=== PATIENT | male | born 1995 | race Caucasian/White ===

== ENCOUNTER 2017-06-07 21:23 | Emergency (ER) | payer MEDICAID, SELFPAY ==
[2017-06-07 21:24] VITALS: BP 139/63; PULSE 95; RESP 15; TEMP 36.9; BMI 34.2
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
== END 2017-06-07 22:22 | disposition home or self-care (01) ==
PROVIDERS: Emergency Provider Emergency Medicine; Family Provider Pediatrics; PCP Pediatrics
DX: S61.216A Laceration without foreign body of right little finger without damage to nail, initial encounter (principal); W26.0XXA Contact with knife, initial encounter; Y93.89 Activity, other specified; Y92.9 Unspecified place or not applicable; Y99.8 Other external cause status
CPT/HCPCS: 12001; 99282

== ENCOUNTER 2017-11-30 17:03 | Emergency (ER) | payer MEDICAID, SELFPAY ==
[2017-11-30 17:04] VITALS: BP 131/67; PULSE 83; RESP 15; TEMP 36.8; O2SAT 97; BMI 35.6
[2017-11-30] MEDS: Naproxen 500 MG Tablet PO (17:24)
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
[2017-11-30 17:51] VITALS: RESP 14
--- NOTE | 2017-11-30 17:51 | ED.RN ---
REVIEWED D/C INSTRUCTIONS, FOLLOW UP CARE, PRESCRIPTION, AND S/S THAT WOULD WARRANT A RETURN TO THE ED WITH PT. PT VERBALIZED AN UNDERSTANDING AND DENIES FURTHER QUESTIONS FOR THIS RN. PT SKIN P/W/D, RESP EVEN AND UNLABORED, PT A&O X 3, NO DISTRESS NOTED. PT AMBULATED OUT OF ED, GAIT STEADY.
== END 2017-11-30 17:52 | disposition home or self-care (01) ==
LOC: ED 17:40
PROVIDERS: Emergency Provider Emergency Medicine; Family Provider Pediatrics; PCP Pediatrics
DX: M79.641 Pain in right hand (principal); F17.210 Nicotine dependence, cigarettes, uncomplicated
CPT/HCPCS: 73130; 99283; A4216

== ENCOUNTER 2018-05-26 19:30 | Emergency (ER) | payer MEDICAID, SELFPAY ==
[2018-05-26 19:30] VITALS: BP 155/98; PULSE 88; RESP 16; TEMP 36.6; O2SAT 98; BMI 33.7
[2018-05-26] MEDS: predniSONE 20 MG Tablet 60 MG PO (19:57)
[2018-05-26] MEDS: Naproxen 500 MG Tablet PO (19:57)
[2018-05-26] MEDS: oxyCODONE 5 MG Tablet PO (19:57)
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
[2018-05-26 21:42] VITALS: RESP 18; O2SAT 98
== END 2018-05-26 21:42 | disposition home or self-care (01) ==
PROVIDERS: Emergency Provider Emergency Medicine
DX: S39.012A Strain of muscle, fascia and tendon of lower back, initial encounter (principal); X50.0XXA Overexertion from strenuous movement or load, initial encounter; Y93.9 Activity, unspecified; Y92.9 Unspecified place or not applicable; Y99.9 Unspecified external cause status; R25.2 Cramp and spasm; M54.10 Radiculopathy, site unspecified; Z72.0 Tobacco use
CPT/HCPCS: 99283

== ENCOUNTER 2018-09-26 09:23 | Emergency (ER) | payer MEDICAID, SELFPAY ==
[2018-09-26 09:24] VITALS: BP 124/78; PULSE 94; RESP 18; TEMP 36.6; O2SAT 98; BMI 34.0
--- NOTE | 2018-09-26 09:49 | ED.VISSUMM ---
- ER Visit Summary Date of Service: 09/26/18 Chief Complaint: Back pain History of Present Illness: The patient is a 22 M with right lower back pain. The symptoms started yesterday evening. The patient was working on his car. He was pulling on a wrench. No other injuries, falls, or car accidents. He has had this pain before, but never this bad. He said the pain radiates down to his right leg. Associated with some paresthesias to his right thigh. Denies any saddle anesthesias. Denies any incontinence or bowel or bladder issues. Denies abdominal pain or GI symptoms. Denies any urinary symptoms. Denies fever or systemic symptoms. Denies any history of back surgery. Physical Examination: Afebrile and vital signs unremarkable. Patient appears uncomfortable but not toxic or in distress. Right lumbar paraspinal muscle tender to palpation. Spine is nontender. No CVA tenderness. Straight leg raise is negative. Good strength, symmetric. Patient reports subjective paresthesias to his left upper leg. He does have some sensation. Pulses intact. Skin appears normal. Test Results: None indicated Emergency Department Course and Treatment: Patient has right lumbar back pain with right-sided sciatica. He was treated medically with Toradol and Norflex. There is no indication for imaging or other diagnostic testing. Patient was advised that he has new or worsening symptoms, he may need imaging or further testing. He will return if there is any issues. Otherwise he will be prescribed naproxen and Flexeril. Follow-up with primary care. Treatment Plan: As above Disposition: Discharge Impression: 1. Right lumbar back pain with right sciatica This note was generated with [employer] dictation software. It may contain incorrect words, spelling, and punctuation that were not noted in review of the chart prior to signing ED Disposition - Plan for ED Patient: Referrals: Care Physician,No Primary [Primary Care Provider] -
--- NOTE | 2018-09-26 09:52 | ED.DEP ---
ED Disposition - Plan for ED Patient: Instructions: BACK PAIN w/ SCIATICA Prescriptions: cycloBENZAPRine HCl [Flexeril] 10 mg PO TID PRN #20 tab PRN Reason: Muscle Spasm Prescription Printed Naproxen [Naprosyn] 500 mg PO BID #14 tab Prescription Printed Referrals: Juana Victor [NON-STAFF] -
[2018-09-26] MEDS: Ketorolac 60 MG/2 ML Vial IM (09:53)
[2018-09-26] MEDS: Orphenadrine 60 MG/2 ML Ampul IM (09:54)
[2018-09-26 10:18] VITALS: BP 121/75; PULSE 82; RESP 18
== END 2018-09-26 10:19 | disposition home or self-care (01) ==
LOC: ED 10:04
PROVIDERS: Emergency Provider Emergency Medicine
DX: M54.41 Lumbago with sciatica, right side (principal); Z72.0 Tobacco use
CPT/HCPCS: 96372; 99284

== ENCOUNTER → 2018-11-12 11:53 | Outpatient (CLI) | payer OTHER, SELFPAY ==
--- NOTE | 2018-11-12 11:55 | RAD_ITS ---
STUDY: X-RAY - RIGHT HAND REASON FOR EXAM: Pain and swelling in metacarpal area, smashing injury at work today. TECHNIQUE: 3 view(s) of the hand. COMPARISON: Radiographs 11/30/2017. FINDINGS: Normal radiocarpal articulation. Normal distal radioulnar joint. Normal visualized carpal bones. Normal carpal articulations Normal carpometacarpal articulation of the thumb. Normal second through fifth carpometacarpal joints. Normal metacarpi. Normal metacarpophalangeal joint of the thumb. Normal interphalangeal joint of the thumb. Normal proximal and distal phalanges of the thumb. Normal metacarpophalangeal joints of the second through fifth fingers. Normal proximal and distal interphalangeal joints of the second through fifth fingers. Normal phalanges of the second through fifth fingers. The soft tissue structures are unremarkable. RAD/Hand Min 3 Views IMPRESSION: Normal x-ray examination of the right hand. Electronically Signed: Randall Lovett MD at 12:38 EDT Tel , Service support ,
== END ==
PROVIDERS: Referring Provider Physician Assistant; Visit Provider Physician Assistant
DX: S69.91XA Unspecified injury of right wrist, hand and finger(s), initial encounter (principal)
CPT/HCPCS: 73130

== ENCOUNTER → 2019-06-07 | Outpatient (CLI) | payer BC, MEDICAID, SELFPAY ==
[2019-06-07 13:53] VITALS: BMI 34.0
[2019-06-07 15:30] LABS: Absolute Lymphocyte Count 2.82 X10^3/uL (0.83-4.51); Absolute Neutrophil Count 3.9 X10^3/uL (2.0-7.7); Basophil# 0.03 X10^3/uL; Basophil% 0.4 % (0-1); Hematocrit 46.1 % (40-54); Hemoglobin 15.3 g/dL (13.0-16.5); Lymphocyte # 2.82 X10^3/ul (4.0); Lymphocyte % 37.4 % (19-41); Mean Corp Hgb Conc 33.2 g/dL (32-36); Mean Corpuscular Hgb 28.3 pg (27.0-32.0); Mean Corpuscular Volume 85.2 fL (80-94); Mean Platelet Vol. 11.7 fl (6.2-12.0); Monocyte# 0.46 X10^3/uL; Monocyte% 6.1 % (0-10); NRBC Flagged by Analyzer 0 % (0-5); Neutrophil # 3.93 X10^3/uL (2.7-7.7); Platelet Count 198 K/mm3 (150-450); RBC Distribution Width CV 12.6 % (11.6-14.6); Red Blood Count 5.41 M/mm3 (4.6-6.2); White Blood Count 7.6 K/mm3 (4.4-11.0)
[2019-06-07 15:58] LABS: Vitamin B12 643 pg/mL (211-911)
[2019-06-07 16:08] LABS: ALB/GLOB Ratio 1.2 RATIO (0.9-2.4); AST(SGOT) 15 U/L (15-37); Alanine Aminotransfer ALT/SGPT 25 U/L (16-61); Albumin, Serum 4.2 g/dL (3.2-5.0); Alkaline Phosphatase 56 U/L (45-117); Anion Gap 6 (5-15); BUN 15 mg/dL (7-18); BUN/Creat Ratio 16.1 RATIO (10-20); Calcium,Total 8.9 mg/dL (8.5-10.1); Chloride 105 mmol/L (98-107); Creatinine, Serum 0.93 mg/dL (0.70-1.30); EST Glomerular Filtration Rate 109 mL/min (>60); Est Glom Filt Rate - Afr Amer 132 mL/min (>60); Globulin 3.5 g/dL (2.2-4.2); Glucose 84 mg/dL (74-106); Protein, Total 7.7 g/dL (6.4-8.2); Sodium Level 140 mmol/L (136-145); T4 Free Direct 0.89 ng/dL (0.76-1.46)
== END | disposition home or self-care (01) ==
LOC: MTLAB 14:41
PROVIDERS: PCP Internal Medicine; Referring Provider Internal Medicine; Visit Provider Internal Medicine
DX: F41.9 Anxiety disorder, unspecified (principal); F32.9 Major depressive disorder, single episode, unspecified
CPT/HCPCS: 36415; 80053; 82607; 84439; 84443; 85025

== ENCOUNTER 2021-03-15 08:48 | Emergency (ER) | payer OTHER, BC, MEDICAID, SELFPAY ==
[2021-03-15 08:48] VITALS: BP 158/106; PULSE 93; RESP 16; TEMP 35.9; O2SAT 98; BMI 33.2
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
[2021-03-15] MEDS: Naproxen 250 MG Tablet 500 MG PO (09:48)
[2021-03-15 09:50] VITALS: RESP 16
== END 2021-03-15 10:00 | disposition home or self-care (01) ==
LOC: ED 09:56
PROVIDERS: Emergency Provider Emergency Medicine
DX: T21.02XA Burn of unspecified degree of abdominal wall, initial encounter (principal); T22.112A Burn of first degree of left forearm, initial encounter; T31.0 Burns involving less than 10% of body surface; F41.9 Anxiety disorder, unspecified; F32.A Depression, unspecified; Z79.899 Other long term (current) drug therapy; F17.200 Nicotine dependence, unspecified, uncomplicated
CPT/HCPCS: 99283